=== PATIENT | male | born 1950 | race African-American/Black ===

== ENCOUNTER 2025-01-10 15:35 | Outpatient (OUT) | payer OTHER, SELFPAY ==
--- OUTSIDE RECORDS SUMMARY | 2024-12-29 15:40 | XMS_ITS | Encounter Summary ---
Author Organization [facility] Address [address] [place] [id number] Phone Care Team Providers Care Electronics Technology Instructor Name Role Phone Josse Robertson MD Primary Care Provider [phone] Reason for Referral * Consultation (Routine) - AuthorizedSpecialtyDiagnoses / ProceduresReferred By ContactReferred To ContactCardiology Diagnoses Essential hypertension, benign Procedures Follow Up In Cardiology Loi Summers MD [address] [place] [address], [address] [address] Phone: tel: fax: Loi Summers MD [address] [place] [address] Phone: tel: fax: Referral IDStatusReasonStart DateExpiration DateVisits RequestedVisits [id number]/20/202511/20/202611 Reason for Visit * Consultation (Routine) - AuthorizedSpecialtyDiagnoses / ProceduresReferred By ContactReferred To ContactCardiology Diagnoses Palpitation Procedures Follow Up In Cardiology Loi Summers MD [address] [place] [address], [address] [address] Phone: tel: fax: Loi Summers MD [address] [place] [address], [address] [address] Phone: tel: fax: Referral IDStatRejenniferStjessica DateExpiration DateVisits RequestedVisits [id number]/13/20252/13/202611 Encounter Details DateTypeDepartmentCare Team (Latest Contact Info)Gagvsuufmik57/20/2025 3:40 PM ESTOffice Visit [facility] [address] [place] [id number] Loi Summers MD [address] [facility] 2, [address] [place] [address] Ventricular ectopic beat (Primary Dx); Palpitation; Mixed hyperlipidemia; Essential hypertension, benign; Chest pain, unspecified type; Abnormal EKG; Obesity (BMI 30-39.9); Former smoker Discharge Disposition: Home Social History Tobacco UseTypesPacks/DayYears UsedDateSmoking Tobacco: OmmmwjBrirqhxgbr201 Smokeless Tobacco: Never Tobacco Cessation:Counseling Given: Not Answered Alcohol UseStandard Drinks/WeekCommentsNever0 (1 standard drink = 0.6 oz pure alcohol)PHQ-2AnswerDate RecordedPatient Health Questionnaire-2 Umfzs353 Sex and Gender InformationValueDate RecordedSex Assigned at BirthNot on file Legal XsoLuni60/25/2022 2:18 PM ESTGender IdentityNot on fileSexual Orientation Not on filedocumented as of this encounter Last Filed Vital Signs Vital SignReadingTime TakenCommentsBlood Vltnrefr349/8612/29/2024 3:59 PM EST Zyrjn570012/29/2024 3:44 PM ESTTemperature--Respiratory Rate--Oxygen Saturation-- Inhaled Oxygen Concentration--Klguie499 kg (227 lb 6.4 oz)12/29/2024 3:44 PM EST Zpsgjs150.9 cm (6')12/29/2024 3:44 PM ESTBody Mass Index30.8412/29/2024 3:44 PM ESTdocumented in this encounter Functional Status * BPAnswerDate of GyppgtvfqnKxzqtc159/ 3:59 PM Teresa De Los Santos LPN * PulseAnswerDate of FhrqvhxuodUxcapz9149/20/2025 3:44 PM Marie Martin LPN documented as of this encounter Patient Instructions * Patient Instructions* Teresa Perez LPN - 12/29/2024 3:40 PM EST Please bring all medicines, vitamins, and herbal supplements with you when you come to the office. Prescriptions will not be filled unless you are compliant with your follow up appointments or have a follow up appointment scheduled as per instruction of your physician. Refills should be requested at the time of your visit. BMI was above normal measurement. Current weight: 103 kg (227 lb 6.4 oz) Weight change since last visit (-) denotes wt loss -7.6 lbs Weight loss needed to achieve BMI 25: 43.5 Lbs Weight loss needed to achieve BMI 30: 6.7 Lbs Provided instructions on dietary changes Provided instructions on exercise. Stop metoprolol Start bystolic 10 mg daily * Attachments The following attachments cannot be sent through Care Everywhere. * Heart Healthy Diet (Greek) documented in this encounter Progress Notes * Loi Summers MD - 12/29/2024 3:40 PM EST No chief complaint on file. Alf Campos is a 74 y.o. male HPI Patient here for follow-up continue management for previous evaluation for PVCs and atypical chest pain. Since last time I saw him he report that he is feeling well. He denies chest pain, palpitation, lightheadedness, dizziness or syncope. He reported chest pain resolved with Prilosec. His blood pressure seem to be controlled. Last time I saw him he was complaining of some intermittent leg cramps. He held his atorvastatin without improvement so he resumed it back. His only complaint this time is erectile medical dysfunction. He reported he tried Viagra but caused him a lot of headache and Cialis was not as effective. I told him this could be really related to to his BP medication. Assessment 1. Previous evaluation for PVCs. Completely asymptomatic 2. Previous evaluation for episodes of chest pain likely GI. Did not respond to Prilosec. Previous stress test was negative. He described functional class I 3. Hypertension controlled with metoprolol and losartan 4. Hyperlipidemia controlled 5. Obesity no weight changes 6. He reports leg cramps. Did not improve with holding statin holiday. He reports functional class.Then can walk 2 miles. 7. Erectile dysfunction likely due to BP medication report Viagra caused him severe headache and Cialis has borderline improvement Plan 1. Patient was counseled regarding nonpharmacologic approach to management of hypertension including the DASH diet 2. I advised him to stop his metoprolol and switch to diastolic 10 mg to see whether that would have less impact on his erectile dysfunction 3. I advised him to continue his rest of medication 4. I advised him to notify me if his medication has been changed 5 1 year follow-up 6. I reviewed his recent lab with him Review of Systems All other systems reviewed and are negative. Vitals: 12/29/24 1544 12/29/24 1559 BP: (!) 148/96 130/86 BP Location: Left arm Patient Position: Sitting Pulse: 80 Weight: 103 kg (227 lb 6.4 oz) Height: 1.829 m (6') Objective Physical Exam Constitutional: Appearance: Normal appearance. HENT: Nose: Nose normal. Neck: Vascular: No carotid bruit. Cardiovascular: Rate and Rhythm: Normal rate. Pulses: Normal pulses. Heart sounds: Normal heart sounds. Pulmonary: Effort: Pulmonary effort is normal. Abdominal: General: Bowel sounds are normal. Palpations: Abdomen is soft. Musculoskeletal: General: Normal range of motion. Cervical back: Normal range of motion. Right lower leg: No edema. Left lower leg: No edema. Skin: General: Skin is warm and dry. Neurological: General: No focal deficit present. Mental Status: He is alert. Psychiatric: Mood and Affect: Mood normal. Behavior: Behavior normal. Thought Content: Thought content normal. Judgment: Judgment normal. Allergies Patient has no known allergies. Current Medications Current Outpatient Medications Medication Instructions atorvastatin (Lipitor) 20 mg tablet 1 tablet, Nightly losartan-hydrochlorothiazide (Hyzaar) 100-25 mg tablet 1 tablet, Daily magnesium oxide (Mag-Ox) 400 mg (241.3 mg magnesium) tablet 1 tablet, 2 times daily omeprazole (PRILOSEC) 40 mg, Daily Assessment/Plan 1. Ventricular ectopic beat 2. Palpitation Follow Up In Cardiology 3. Mixed hyperlipidemia 4. Essential hypertension, benign 5. Chest pain, unspecified type 6. Abnormal EKG 7. Obesity (BMI 30-39.9) 8. Former smoker Scribe Attestation By signing my name below, Teresa Jurado LPN , Scribe attest that this documentation has been prepared under the direction and in the presence of MD Bari. Provider Attestation - Scribe documentation All medical record entries made by the Scribe were at my direction and personally dictated by me. Ihave reviewed the chart and agree that the record accurately reflects my personal performance of the history, physical exam, discussion and plan. documented in this encounter Plan of Treatment DateTypeDepartmentCare Team (Latest Contact Info)Cgvrmgnsppw66/30/2026 3:20 PM EDTOffice Visit [facility] [address] [address] Loi Summers MD 703 [facility] 2, [address] [address] documented as of this encounter Visit Diagnoses Diagnosis Ventricular ectopic beat- Primary Other premature beats Palpitation Palpitations Mixed hyperlipidemia Essential hypertension, benign Chest pain, unspecified type Abnormal EKG Nonspecific abnormal electrocardiogram (ECG) (EKG) Obesity (BMI 30-39.9) Former smoker Personal history of tobacco use, presenting hazards to health documented in this encounter Additional Health Concerns AssessmentNoted TimeA fall risk assessment has been completed for the patient 03/24/2024 3:33 PM ESTdocumented as of this encounter Care Teams Team MemberRelationshipSpecialtyStart DateEnd Date Josse Robertson MD [address] [place] [address] [facility] - General02/09/19documented as of this encounter
--- OUTSIDE RECORDS SUMMARY | 2025-01-02 15:40 | XMS_ITS | Encounter Summary ---
Author Organization [facility] Address [address] [place] [address] Care Team Providers Care Surgical Lead Name Role Phone Josse Robertson MD Primary Care Provider [phone] Laurence Morgan ENDODONTICS DENTIST Unavailable Encounter Details DateTypeDepartmentCare Team (Latest Contact Info)Hphtmygocdk29/24/2025 3:40 PM ESTOffice Visit [facility] [address] [place] [address] Laurence Morgan, ENDODONTICS DENTIST [address] [place] [address] Routine general medical examination at health care facility (Primary Dx); Medicare annual wellness visit, subsequent; BMI 30.0-30.9,adult Social History Tobacco UseTypesPacks/DayYears UsedDateSmoking Tobacco: NeverSmokeless Tobacco: Never Tobacco Cessation:Counseling Given: Not Answered Alcohol UseStandard Drinks/WeekCommentsNever0 (1 standard drink = 0.6 oz pure alcohol)AUDIT-CAnswerDate RecordedQ1: How often do you have a drink containing alcohol?Never07/29/2022Q2: How many drinks containing alcohol do you have on a typical day when you are drinking?Patient does not drink07/29/2022Q3: How often do you have six or more drinks on one occasion?Never07/29/2022HQ-2AnswerDate RecordedPatient Health Questionnaire-2 Oruwg76403/04/2024Sex and Gender InformationValueDate RecordedSex Assigned at BirthNot on fileLegal SexMale 04/23/2022 7:12 PM EDTGender IdentityNot on fileSexual OrientationNot on file documented as of this encounter Last Filed Vital Signs Vital SignReadingTime TakenCommentsBlood Apibjcpc098/8801/02/2025 3:48 PM EST Euscy359501/02/2025 3:48 PM FVDQoqogcrkjyx86.2 ??C (97.2 ??F)01/02/2025 3:48 PM ESTRespiratory Xcys236103/04/2024 3:48 PM ESTOxygen Apknthisue80%01/02/2025 3:48 PM ESTInhaled Oxygen Concentration--Odflew460 kg (225 lb)01/02/2025 3:48 PM EST Cxurpb561.9 cm (6')01/02/2025 3:48 PM ESTBody Mass Index30.5201/02/2025 3:48 PM ESTdocumented in this encounter Functional Status * Over the past 2 weeks, how often have you been bothered by any of the following problems?QuestionAnswerDate of AssessmentAuthorLittle interest or pleasure in doing thingsNot at all01/02/2025 3:00 PM Mariza Minaya MA Feeling down, depressed, or hopelessNot at all01/02/2025 3:00 PM Mariza Minaya MAPatient Health Questionnaire-2 Aheoi61003/04/2024 3:00 PM Mariza Minaya MA * QuestionAnswerDate of AssessmentAuthorTrouble falling or staying asleep, or sleeping too muchNot at all01/02/2025 3:00 PM Mariza Minaya MAFeeling tired or having little energyNot at all01/02/2025 3:00 PM Mariza Minaya MAPoor appetite or overeatingNot at all01/02/2025 3:00 PM Mariza Minaya MAFeeling bad about yourself - or that you are a failure or have let yourself or your family downNot at all01/02/2025 3:00 PM ESTHaer, Mariza, MATrouble concentrating on things, such as reading the newspaper or watching television Not at all01/02/2025 3:00 PM Mariza Minaya, MAMoving or speaking so slowly that other people could have noticed? Or the opposite - being so fidgety or restless that you have been moving around a lot more than usual.Not at all 01/02/2025 3:00 PM Mariza Minaya, MAThoughts that you would be better off or hurting yourself in some wayNot at all01/02/2025 3:00 PM Mariza Minaya, [facility] Health Questionnaire-9 Droqj76203/04/2024 3:00 PM Mariza Minaya MA documented as of this encounter Progress Notes * Laurence Morgan, ENDODONTICS DENTIST - 01/02/2025 3:40 PM EST Images from the original note were not included. Family Medicine Note Subjective : Chief Complaint: Lilibeth Campos is an 74 y.o. male here for an annual wellness visit. He is upto date on lab work and preventative wellness screenings. He denies the need for medication refillsat this time. I have reviewed and reconciled the history and medication list with the patient today. Current Outpatient Medications Medication Sig Dispense Refill atorvastatin (Lipitor) 10 MG tablet Take 10 mg by mouth Daily celecoxib (CeleBREX) 200 MG capsule Take 1 capsule (200 mg) by mouth Daily 30 capsule 5 coenzyme Q-10 100 MG capsule Take 1 capsule (100 mg) by mouth Daily 90 capsule 3 cyclobenzaprine (Flexeril) 5 MG tablet Take 5 mg by mouth as needed in the morning and 5 mg as needed at noon and 5 mg as needed in the evening for muscle spasms. Flomax 0.4 MG 24 hr capsule Take 0.8 mg by mouth Gemtesa 75 MG tablet Take 75 mg by mouth magnesium oxide (Mag-Ox) 400 (240 Mg) MG tablet Take 2 tablets (800 mg) by mouth Daily 180 tablet 3 metoprolol succinate XL (Toprol-XL) 50 MG 24 hr tablet Take 1 tablet (50 mg) by mouth Daily Do not crush or chew. 90 tablet 3 nebivolol (Bystolic) 10 MG tablet Take 10 mg by mouth Daily No current facility-administered medications for this visit. List of current healthcare providers: Patient Care Team: Josse Robertson MD as PCP - General (Family Medicine) Laurence Morgan NP as Nurse Practitioner (Family Medicine) Medicare Annual Visit Over the past 2 weeks, how often have you been bothered by any of the following problems? Little interest or pleasure in doing things: Not at all Feeling down, depressed, or hopeless: Not at all Patient Health Questionnaire-2 Score: 0 Over the past 2 weeks, how often have you been bothered by any of the following problems? Trouble falling or staying asleep, or sleeping too much: Not at all Feeling tired or having little energy: Not at all Poor appetite or overeating: Not at all Feeling bad about yourself - or that you are a failure or have let yourself or your family down: Not at all Trouble concentrating on things, such as reading the newspaper or watching television: Not at all Moving or speaking so slowly that other people could have noticed? Or the opposite - being so fidgety or restless that you have been moving around a lot more than usual.: Not at all Thoughts that you would be better off or hurting yourself in some way: Not at all Patient Health Questionnaire-9 Score: 0 Pereira Fall Risk History of Falling, Immediate or Within 3 Months: No Secondary Diagnosis: No Ambulatory Aid: Walks without aid/bedrest/nurse assist Intravenous Therapy/Heparin Lock: No Gait/Transferring: Normal/bedrest/immobile Mental Status: Oriented to own ability Pereira Fall Risk Score: 0 Health Risk Assessment Form Do you need help eating, bathing, using the toilet, dressing, or getting around your home?: No Can you prepare your own meals?: Yes Can you do your own housework without help?: Yes Can you shop for groceries or clothes without help?: Yes Do you exercise for about 20 minutes 3 or more days a week?: No How confident are you that you can control and manage most of your health problems?: Very confident Can you mange your money, credit cards and accounts, pay bills and taxes?: Yes Cognitive Screening Self Assessment: No overt cognitive deficiency is apparent by direct observation, No concerns rasied by family members, friends, or caretakers, No self awareness of cognitive deficiency Three Word Registration: Magdi Mcnulty,Finger) Clock Drawing: Normal Clock - 2 Three Word Recall: All 3 words correct - 3 Total Score (0-5 Points): 5 Pain Assessment Pain Score: 2 Advance Care Planning Do you have a living will?: No Do you have a medical power of estate planning attorney?: No Objective : BP 138/88 Pulse 57 Temp 97.2 ??F (Temporal) Resp 16 Ht 6' Wt 225 lb SpO2 99% BMI 30.52 kg/m?? No results found. Physical Exam Vitals and nursing note reviewed. Constitutional: General: He is not in acute distress. Appearance: Normal appearance. He is not ill-appearing. HENT: Head: Normocephalic and atraumatic. Right Ear: External ear normal. Left Ear: External ear normal. Nose: Nose normal. Mouth/Throat: Mouth: Mucous membranes are moist. Eyes: Extraocular Movements: Extraocular movements intact. Pupils: Pupils are equal, round, and reactive to light. Cardiovascular: Rate and Rhythm: Normal rate. Pulses: Normal pulses. Heart sounds: No murmur heard. Pulmonary: Effort: Pulmonary effort is normal. Breath sounds: No wheezing, rhonchi or rales. Abdominal: General: Bowel sounds are normal. There is no distension. Tenderness: There is no abdominal tenderness. Musculoskeletal: General: Normal range of motion. Cervical back: Normal range of motion. Skin: General: Skin is warm and dry. Neurological: General: No focal deficit present. Mental Status: He is alert and oriented to person, place, and time. Psychiatric: Mood and Affect: Mood normal. Behavior: Behavior normal. Judgment: Judgment normal. Assessment/Plan : The following health maintenance schedule was reviewed with the patient and provided in printed form in the after visit summary: Health Maintenance Topic Date Due Influenza Vaccine (1) 08/08/2025 (Originally 10/10/2024) Pneumococcal Vaccine: 65+ Years (1 of 2 - PCV) 01/02/2026 (Originally 10/20/1969) Medicare Annual Wellness (AWV) 01/03/2026 Colorectal Cancer Screening 09/15/2032 COVID-19 Vaccine Discontinued Diagnoses and all orders for this visit: Routine general medical examination at [facility] Medicare annual wellness visit, subsequent Patient here for annual Medicare Wellness visit. Demographics were updated. Self-assessment was completed. Past medical, family and social history were updated. The medication list, including supplements being taken, was updated. A list of other current medical providers was established/updated. Time was spent discussing health maintenance issues, ordering proper testing, and schedule was provided regarding recommended screening. We discussed safety issues and fall risk. Depression screening was completed and addressed. Cognitive function was assessed by direct observation and assessment of ability to perform ADL's and IADL's was done. We also discussed Advanced Directives and code status. The current BMI was provided along with an education packet regarding healthy living and maintenanceof a healthy weight. The BMI will cont to be monitored at routine office visits as well. Major riskfactors for chronic disease including family history were discussed . Other orders - Follow Up In Family Medicine; Future Advance Care Planning He does not have a living will or POA in place. Electronically signed by Laurence Morgan NP on January 09, 2025 documented in this encounter Plan of Treatment DateTypeDepartmentCare Team (Latest Contact Info)Vlboeajagxw50/05/2025 2:00 PM ESTAncillary Procedure [facility] [address] [place] [address] 06/29/2025 3:40 PM EDTOffice Visit [facility] [place] [facility] [address] [place] [address] Laurence Morgan NP [address] [place] [address] documented as of this encounter Visit Diagnoses Diagnosis Routine general medical examination at health care facility- Primary Routine general medical examination at a health care facility Medicare annual wellness visit, subsequent BMI 30.0-30.9,adult documented in this encounter Additional Health Concerns AssessmentNoted TimePHQ-9 Depression Total Score: 3:00 PM EST documented as of this encounter Care Teams Team MemberRelationshipSpecialtyStart DateEnd Date Josse Robertson MD [address] [place] [address] PCP - GeneralFamily Medicine07/16/22 Laurence Morgan NP [address] [place] [address] Nurse PractitionerFacape cod and the islands [facility] Medicine05/07/24documented as of this encounter
--- NOTE | 2025-01-10 15:37 | ECG_ITS ---
[facility] Test Date: 2025-01-10 Pat Name: ALYSIA SEARS Department: Room: - Gender: Male Operation Supervisor: : 1950 Requested By: [id number] Order Number: [id number] Reading MD: MARCELINO MG M.D. Measurements Intervals Johnson Rate: 52 P: 72 TX: 168 QRS: 9 QRSD: 100 T: 53 QT: 404 QTc: 377 Interpretive Statements SINUS BRADYCARDIA WITH SINUS ARRHYTHMIA NONSPECIFIC T-WAVE ABNORMALITY Abnormal ECG No previous ECG available for comparison Electronically Signed On 01-11-2025 19:47:04 EST by MARCELINO MG M.D.
--- NOTE | 2025-01-10 15:38 | CA_ITS ---
Patient Name: ALYSIA SEARS MR#: [id number] : 1950 Exam Date: 01/10/2025 Ordering Doctor: DR. KASI VELA ECHOCARDIOGRAM REPORT PROCEDURE: CA ECHO DOPPLER COMPLETE INDICATIONS: Ischemic heart disease, hypertension COMPARISON: None. DESCRIPTION: COMPLETE ECHOCARDIOGRAM Real-time transthoracic echocardiography with 2D, M-mode, spectral and color flow Doppler performed. QUALITY: Technical quality was good. LEFT VENTRICLE: Normal chamber size. Normal left ventricular wall thickness. Systolic function is normal. Estimated left ventricular ejection fraction is 55-60%. LV EF: Normal left ventricular ejection fraction, (>55%). DIASTOLIC: Diastolic function is indeterminate. ATRIAL SEPTUM: LEFT ATRIUM: Mild dilatation. RIGHT ATRIUM: Mild dilatation. RIGHT VENTRICLE: Normal chamber size. Normal right ventricular systolic function. TRICUSPID VALVE: Normal mobility and thickness. No stenosis with mild regurgitation. Doppler studies reveal moderately (45-60) elevated right sided pressures. RVSP 46 mmHg MITRAL VALVE: Normal mobility and thickness. No evidence of mitral valve stenosis. There is no mitral annular calcification. Mild mitral regurgitation. AORTIC VALVE: Normal trileaflet appearance. No visible sclerosis. Normal leaflet mobility. No evidence of aortic valve stenosis. No aortic regurgitation. AORTIC ROOT: Normal diameter and appearance, measuring 3.3 cm. Ascending aorta is normal in size, measuring 2.9 cm. PULMONIC VALVE: Normal thickness and mobility. No stenosis. Mild regurgitation. PERICARDIUM: No evidence of pericardial effusion. IVC: Not well visualized. PLEURA: CONCLUSION: 1. Normal left ventricular size and systolic function. Estimated LVEF is 55 to 60%. 2. Normal right ventricular size and systolic function. 3. Mild biatrial dilatation. 4. Mild mitral, tricuspid and pulmonic regurgitation. 5. Moderately elevated right-sided pressures. RVSP is 46 mmHg. Adult Echocardiography Procedure Report Left Ventricle LVEDD (3.7 - 5.6 cm): 5.16 cm LVESD (2.2 - 4.0 cm): 3.83 cm LVIVS thickness (0.6 - 1.2 cm): 1.13 cm LVPW thickness (0.5 - 1.0 cm): 1.03 cm e': 0.12 m/s E - e': 7.46 LVOT Max Gradient: 2.31 mm[Hg] LVOT Area (cm2): 0.76 m/s Peak Velocity (LVOT): 0.76 m/s Mean Velocity (LVOT): 0.53 m/s LVOT Diameter 2.28 cm Left Ventricular Ejection Fraction: 55-60 % Left Atrium LA Volume Index (2D A2C): 44.83 ml/m2 Left Atrium Systolic Dimension: 4.49 cm Mitral Valve MV E to A Ratio: 1.02 Mitral Valve A-Wave Peak Velocity: 0.87 m/s Mitral Valve E-Wave Peak Velocity: 0.88 m/s Right Ventricle Aorta AO Root Diam: 3.30 cm Ascending Ao Diam: 2.86 cm Aortic Valve AoV Area (Peak Emre): 2.10 cm2, 2.10 cm2 AoV Area (VTI): 2.38 cm2, 2.38 cm2 Peak Velocity(Antegrade Flow): 1.47 m/s Peak Gradient(Antegrade Flow): 8.69 mm[Hg] Mean Velocity(Antegrade Flow): 0.91 m/s Mean Gradient(Antegrade Flow): 4.00 mm[Hg] Velocity Time Integral: 36.86 cm Tricuspid Valve Peak Velocity (Regurgitant Flow): 3.30 m/s Pulmonic Valve Mean Gradient: 2.94 mm[Hg] Mean Velocity: 0.81 m/s Peak Velocity: 1.15 m/s Peak Gradient: 5.33 mm[Hg] Right Atrium Right Atrium Systolic Pressure: 59.38 ml, 59.38 ml Dictated by: King Slater M.D. on 01/10/2025 at 17:15 Approved by: King Slater M.D. on 01/10/2025 at 17:21
--- OUTSIDE RECORDS SUMMARY | 2025-01-10 15:39 | XMS_ITS | Clinical Summary ---
Author Organization [facility] Address [address] [place] [address] Care Team Providers Care Agriculture Technician Name Role Phone Hieu Rogers MD Unavailable Allergies No known active allergies Medications MedicationSigDispense QuantityRefillsLast FilledStart DateEnd DateStatus ferrous sulfate 325 mg (65 mg iron) tablet Take 1 tablet by mouth once daily.12/16/2019Active atorvastatin (LIPITOR) 20 mg tablet 01/31/2020Active amLODIPine-benazepril (LOTREL) 5-20 mg per capsule 01/31/2020Active Active Problems ProblemNoted DateDiagnosed DateED (erectile dysfunction) of organic origin 02/15/2020 Social History Tobacco UseTypesPacks/DayYears UsedDateSmoking Tobacco: FormerSmokeless Tobacco: NeverArea Deprivation IndexAnswerDate RecordedNational Score (1-100), lower number is lower riskNot on file02/15/2020tate Score (1-10), lower number is lower riskNot on file02/15/2020ata from: https://www.neighborhoodatlas.medicine.[facility].edu/. Last address used for calculationNot on file02/15/2020ex and Gender InformationValueDate RecordedSex Assigned at BirthNot on fileLegal VefDsdi73/22/2020 3:53 PM ESTGender Identity Not on fileSexual OrientationNot on file Last Filed Vital Signs Vital SignReadingTime TakenCommentsBlood Cgjrtptc319/76002/15/2020 2:26 PM EST Lvexr770002/15/2020 2:26 PM QTEApvynnyxzee53.1 ??C (97 ??F)02/15/2020 2:26 PM EST Respiratory Rate--Oxygen Saturation--Inhaled Oxygen Concentration--Dpgovf34.4 kg (217 lb)02/15/2020 2:26 PM QYDSrscvd991.9 cm (6')02/15/2020 2:26 PM ESTBody Mass Index29.4301 2:26 PM EST Plan of Treatment Health MaintenanceDue DateLast DoneCommentsAbdominal Aortic Aneurysm Screening 3Anxiety Fbvkxcacl47/10/1971Depression Hfexrbmph24/10/1971Hepatitis C Cazbgdihe14/10/1971DTaP,Tdap,Td Vaccine (1 - Tdap)10/20/1971Lipid Screening 10/20/1987CT Ksybesxqyluh65/10/1998Cologuard (FIT-DNA)1997Colonoscopy 1997Colorectal Cancer Vexgkejfx41/10/1998Diabetes Hcifajhzx28/10/1998Fecal Occult Blood10/19/19979889Jgcfjxsnomorv88/10/1998Pneumococcal Vaccine: 50+ (1 of 1 - PCV)2002Shingrix Vaccine (1 of 2)2002Advance Directive Discussion 02/10/2024ovid-19 Vaccine (1 - 2024- season)2024Influenza Vaccine (#1) 2024RSV Vaccine (1 - 1-dose 75+ series)10/20/2027 Insurance Care Teams Team MemberRelationshipSpecialtyStart DateEnd Hieu Rogers MD [address] [place] [address] AocyxmpjvLnbkjnq03/22/20
--- OUTSIDE RECORDS SUMMARY | 2025-01-10 15:39 | XMS_ITS | Clinical Summary ---
Author Organization [facility] Address [address] [place] [address] Phone Care Team Providers Care Cs Associate Name Role Phone Josse Robertson MD Primary Care Provider Allergies No known active allergies Medications MedicationSigDispense QuantityRefillsLast FilledStart DateEnd DateStatus atorvastatin (Lipitor) 20 mg tablet Take 1 tablet (20 mg) by mouth once daily at bedtime.Active magnesium oxide (Mag-Ox) 400 mg (241.3 mg magnesium) tablet Take 1 tablet (400 mg) by mouth 2 times a day.07/23/2021ctive omeprazole (PriLOSEC) [address] capsule Take 2 capsules (40 mg) by mouth once daily. Do not crush or chew. Take for 6 weeksActive losartan-hydrochlorothiazide (Hyzaar) 100-25 mg tablet Take 1 tablet by mouth once daily.Active nebivolol (Bystolic) 10 mg tablet Indications:Essential hypertension, benignTake 1 tablet (10 mg) by mouth once daily. 90 tablet ctive metoprolol succinate XL (Toprol-XL) 50 mg 24 hr tablet Indications:Essential hypertension, benignTake 1 tablet (50 mg) by mouth once daily. Do not crush or chew. 90 tablet Discontinued(Therapy completed) Active Problems ProblemNoted DateDiagnosed DateFormer eqacol1609/22/2023Obesity (BMI 30-39.9) 09/22/2023bnormal EKG09hest pain10/16/2022Ventricular ectopic beat 10/16/20225916Kxqfbiziyrm32/07/2023Mixed xszivftqdeclin24/07/2023Essential hypertension, cwivok9410/16/2022 Resolved Problems ProblemNoted DateDiagnosed DateResolved DateOverweight with body mass index (BMI) of 29 to 29.9 in adult/ Encounters DateTypeDepartmentCare XbrnCzyojqsyovz01/20/2025 3:40 PM ESTOffice Visit [address] [address] Loi Summers MD Ventricular ectopic beat (Primary Dx); Palpitation; Mixed hyperlipidemia; Essential hypertension, benign; Chest pain, unspecified type; Abnormal EKG; Obesity (BMI 30-39.9); Former smoker Discharge Disposition: Home12/29/2024Travelfrom Last 3 Months Family History Medical HistoryRelationNameCommentsCancerFatherEmphysemaMotherRelationNameStatus CommentsFatherMother Social History Tobacco UseTypesPacks/DayYears UsedDateSmoking Tobacco: KovbefAjzqmnxdip291 Smokeless Tobacco: Never Tobacco Cessation:Counseling Given: Not Answered Alcohol UseStandard Drinks/WeekCommentsNever0 (1 standard drink = 0.6 oz pure alcohol)PHQ-2AnswerDate RecordedPatient Health Questionnaire-2 Skfar755 Sex and Gender InformationValueDate RecordedSex Assigned at BirthNot on file Legal OywIzfq35/25/2022 2:18 PM ESTGender IdentityNot on fileSexual Orientation Not on file Last Filed Vital Signs Vital SignReadingTime TakenCommentsBlood Uwfacyfx866/8612/29/2024 3:59 PM EST Wtzwy794312/29/2024 3:44 PM ESTTemperature--Respiratory Rate--Oxygen Saturation-- Inhaled Oxygen Concentration--Zfxpbv408 kg (227 lb 6.4 oz)12/29/2024 3:44 PM EST Krdvyc213.9 cm (6')12/29/2024 3:44 PM ESTBody Mass Index30.8412/29/2024 3:44 PM EST Plan of Treatment DateTypeDepartmentCare Team (Latest Contact Info)Otkvwljjhjy80/30/2026 3:20 PM EDTOffice Visit [address] [address] Loi Summers MD [address] [facility] 2, [address] [address] Health MaintenanceDue DateLast DoneCommentsCT Ojemsxgjjkfx14/10/1953FIT-DNA (Cologuard)1952FIT1952Lipid Panel1952Medicare Annual Wellness Visit (AWV)1952Pfxfattjpaprb07/10/1953MMR Vaccines (1 of 1 - Standard series)1953Hepatitis C Dzduaigoi96/10/1971DTaP/Tdap/Td Vaccines (1 - Tdap) 1974Pneumococcal Vaccine (1 of 1 - PCV)2002RSV High Risk: (Elderly (60+) or Population) (1 - Risk 50-74 years 1-dose series)2002 Zoster Vaccines (1 of 2)2002Abdominal Aortic Aneurysm (AAA) Screening 2017Influenza Vaccine (#1)5COVID-19 Vaccine (1 - season) 10/10/20249124Vcpzrtxsbxh66Colorectal Cancer Iqgspyahi59/12/2025 HIB VaccinesAged OutNo longer eligible based on patient's age to complete this topicHPV VaccinesAged OutNo longer eligible based on patient's age to complete this topicHepatitis A VaccinesAged OutNo longer eligible based on patient's age to complete this topicHepatitis B VaccinesAged OutNo longer eligible based on patient's age to complete this topicIPV VaccinesAged OutNo longer eligible based on patient's age to complete this topicMeningococcal VaccineAged OutNo longer eligible based on patient's age to complete this topicRotavirus VaccinesAged Out No longer eligible based on patient's age to complete this topic Insurance Care Teams Team MemberRelationshipSpecialtyStart DateEnd Date Josse Robertson MD [address] [place] [id number] PCP - General02/09/19
--- OUTSIDE RECORDS SUMMARY | 2025-01-10 15:39 | XMS_ITS | Encounter Summary ---
Author Organization [facility] Address [address] [place] [address] Care Team Providers Care Assistant Professor Of Nursing Name Role Phone Josse Robertson MD Primary Care Provider [phone] Laurence Morgan HYDRAULIC ASSEMBLER Unavailable Encounter Details DateTypeDepartmentCare Team (Latest Contact Info)Jgablfjuwhi11/24/2025amboo flowsheet [facility] [address] [place] [address] Laurence Morgan, HYDRAULIC ASSEMBLER [address] [place] [address] Social History Tobacco UseTypesPacks/DayYears UsedDateSmoking Tobacco: NeverSmokeless Tobacco: NeverAlcohol UseStandard Drinks/WeekCommentsNever0 (1 standard drink = 0.6 oz pure alcohol)AUDIT-CAnswerDate RecordedQ1: How often do you have a drink containing alcohol?Never07/29/2022Q2: How many drinks containing alcohol do you have on a typical day when you are drinking?Patient does not drink07/29/2022Q3: How often do you have six or more drinks on one occasion?Never07/29/2022HQ-2 AnswerDate RecordedPatient Health Questionnaire-2 Sqxsx20803/04/2024Sex and Gender InformationValueDate RecordedSex Assigned at BirthNot on fileLegal SexMale 04/23/2022 7:12 PM EDTGender IdentityNot on fileSexual OrientationNot on file documented as of this encounter Functional Status * Over the past 2 weeks, how often have you been bothered by any of the following problems?QuestionAnswerDate of AssessmentAuthorLittle interest or pleasure in doing thingsNot at all01/02/2025 3:00 PM Mariza Minaya MA Feeling down, depressed, or hopelessNot at all01/02/2025 3:00 PM Mariza Minaya MAPatient Health Questionnaire-2 Ndlym24403/04/2024 3:00 PM Mariza Minaya MA * QuestionAnswerDate of AssessmentAuthorTrouble falling or staying asleep, or sleeping too muchNot at all01/02/2025 3:00 PM Mariza Minaya MAFeeling tired or having little energyNot at all01/02/2025 3:00 PM Mariza iMnaya MAPoor appetite or overeatingNot at all01/02/2025 3:00 PM Mariza Minaya MAFeeling bad about yourself - or that you are a failure or have let yourself or your family downNot at all01/02/2025 3:00 PM Mariza Minaya MATrouble concentrating on things, such as reading [...] some wayNot at all01/02/2025 3:00 PM Mariza Minaya MAPatient Health Questionnaire-9 Otrjr37803/04/2024 3:00 PM Mariza Minaya MA documented as of this encounter Plan of Treatment DateTypeDepartmentCare Team (Latest Contact Info)Tdhavudgcgr44/05/2025 2:00 PM ESTAncillary Procedure [facility] [address] [address] 06/29/2025 3:40 PM EDTOffice Visit [facility] [address] [place] [address] Laurence Morgan NP [address] [place] [address] documented as of this encounter Visit Diagnoses Not on filedocumented in this encounter Additional Health Concerns AssessmentNoted TimePQ-9 Depression Total Score: 3:00 PM EST documented as of this encounter Care Teams Team MemberRelationshipSpecialtyStart DateEnd Date Josse Robertson MD [address] [place] [address] PCP - GeneralFamily Medicine07/16/22 Laurence Morgan NP [address] [place] [address] Nurse PractitionerFamily Medicine05/07/24documented as of this encounter
--- OUTSIDE RECORDS SUMMARY | 2025-01-10 15:39 | XMS_ITS | Clinical Summary ---
Author Organization [facility] Address [address] [place] [address] Care Team Providers Care Engraver Machine Name Role Phone Josse Robertson MD Primary Care Provider [phone] Laurence Morgan GRAPE PRUNER Unavailable [phone] Allergies No known active allergies Medications MedicationSigDispense QuantityRefillsLast FilledStart DateEnd DateStatus metoprolol succinate XL (Toprol-XL) 50 MG 24 hr tablet Indications:Essential hypertensionTake 1 tablet (50 mg) by mouth Daily Do not crush or chew. 90 tablet /5Active coenzyme Q-10 100 MG capsule Indications:Hyperlipidemia, unspecified hyperlipidemia typeTake 1 capsule (100 mg) by mouth Daily 90 capsule ctive magnesium oxide (Mag-Ox) 400 (240 Mg) MG tablet Indications:HypomagnesemiaTake 2 tablets (800 mg) by mouth Daily 180 tablet 6Active cyclobenzaprine (Flexeril) 5 MG tablet Take 5 mg by mouth as needed in the morning and 5 mg as needed at noon and 5 mg as needed in the evening for muscle spasms.Active atorvastatin (Lipitor) 10 MG tablet Take 10 mg by mouth DailyActive celecoxib (CeleBREX) 200 MG capsule Indications:Chronic pain of both kneesTake 1 capsule (200 mg) by mouth Daily 30 capsule //931513/5Active Flomax 0.4 MG 24 hr capsule Take 0.8 mg by mouth5Active Gemtesa 75 MG tablet Take 75 mg by mouth08/21/2025Active nebivolol (Bystolic) 10 MG tablet Take 10 mg by mouth DailyActive losartan-hydroCHLOROthiazide (Hyzaar) 100-25 MG tablet Indications:Essential hypertensionTake 1 tablet by mouth Daily 90 tablet Discontinued(Therapy completed) cholecalciferol (Vitamin D-3) 125 MCG (5000 UT) capsule Indications:Vitamin D deficiencyTake 1 capsule (125 mcg) by mouth Daily 90 capsule Discontinued(Therapy completed) methylPREDNISolone (Medrol Dospak) 4 MG tablets Indications:Muscle strain of right wrist, initial encounterFollow schedule on package instructions 21 tablet Discontinued(Therapy completed) Active Problems ProblemNoted DateDiagnosed DateLumbar fmohaeptyrbwr44/21/2024ilateral thigh pain07/31/2023ilateral knee pain07/31/2023denomatous polyp of descending colon 09/24/2022Helicobacter pylori mpsrjauyh59/10/2023astroesophageal reflux disease 08/20/2022 Assessment & Plan (08/20/2022 3:43 PM EDT): The patient has been on Prilosec for several months and still c/o reflux issues. I explained that Ican do an EGD at the same time I do the colonoscopy to check for ulcers and H. Pylori. I explained the EGD procedure to him with the risks and benefits. Left upper quadrant abdominal pain08/20/2022 Assessment & Plan (08/20/2022 3:45 PM EDT): I reviewed his negative GB US which was negative for GB disease, ,he has a history of colon polyps.He presents today with LUQ abdomina pain. I suggest we do a colonoscopy. I explained the colonoscopy procedure in detail to the patient and discussed the risks and benefits including but not exclusive of bleeding, and perforation. I asked the patient not to drive, operate any machinery or make any important decisions on the day of the procedure. The patient is in agreement and arrangements for colonoscopy have been made. BMI 29.0-29.9,adult08/19/2022PH with urinary mlyhertlpgy77/11/2023Former smoker 08/19/2022Frequent fnghqinlk35/11/0699Gtpqpfpp98/11/2023ost-void dribbling 08/19/2022ilateral carpal tunnel iashoigx10/07/2023Erectile disorder due to medical condition in male07/16/2022Essential wqpmiwgqaeue35/07/2023 Dnqjjtiopehbfd87/07/3322Hopuikqwecxpfr75/07/2023Mixed vwawlgntaqoffq53/07/2023 Renal calculus, right07/16/2022Vitamin D rqqfvzehte35/07/2023 Resolved Problems ProblemNoted DateDiagnosed DateResolved DateClass 1 fzehigx41/ Encounters DateTypeDepartmentCare WyxnCzmgdcnjpiz05/24/2025 3:40 PM ESTOffice Visit [facility] [address] [place] [address] Laurence Morgan NP Routine general medical examination at [facility] (Primary Dx); Medicare annual wellness visit, subsequent; BMI 30.0-30.9,adult01/02/2025bstract [facility] [address] [place] [address] Laurence Morgan NP 01/02/2025amboo flowsheet [facility] [address] [place] [address] Laurence Morgan NP 01/02/20250020Dnjeaz36/08/2025Telephone [facility] [address] [place] [address] Josse Robertson MD Appointment Confirmation; Medicare Annual Wellness Visit Hxswgsq8112/12/2024Orders Only [facility] [address] [place] [address] Laurence Morgan NP 12/12/2024bstract [facility] [address] [place] [address] Josse Robertson MD 11/24/2024Telephone [facility] [address] [place] [address] Angel Hannon PA Follow up (Called to let Lilibeth know I checked with urgent care & Maryam let me know she spokewith his medical case manager and his [facility] claim for the right injury was closed. He said we can use use [facility] Medicare for his visit.)11/21/2024 3:15 PM EDTOffice Visit [facility] [address] [place] [address] Angel Hannon PA Mass of left wrist (Primary Dx); Primary distal radioulnar joint osteoarthritis, left11/21/20244219Eujotb57/02/2025 4:00 PM EDTAncillary Procedure [facility] [address] [place] [address] 11/10/2024 3:40 PM EDTOffice Visit [facility] [address] [place] [address] Radha Garcia, GUERRERO Right wrist pain (Primary Dx); Muscle strain of right wrist, initial xrtekfhmr35/02/0187Hkkcsy77/02/2025 Telephone [facility] [address] [place] [address] Maryam Weber MA Worker's Compensation (Follow up with [facility] referral)from Last 3 Months Immunizations ImmunizationAdministration DatesNext DuePfizer Purple Cap SARS-CoV-2 Vaccination 08/15/2020,1Pneumococcal Conjugate PCV (Deferred: Patient decision) Family History Medical HistoryRelationNameCommentsPneumoniaBrotherkevindied 17Heart disease Fatherdonalddied 76COPDMotherdeloresdied 67Breast cancerNeg HxColon cancerNeg Hx Ovarian cancerNeg HxUterine cancerNeg HxRelationNameStatusCommentsBrotherkevin Sjnfcwyt5DxlfwgybhfsuWwfqurlvUsijrbbterojzVweblaasFhdin0 brothers, 4 sisters, 5 sons, 1 daughterSister4 Social History Tobacco UseTypesPacks/DayYears UsedDateSmoking Tobacco: NeverSmokeless [...] drinks on one occasion?Never07/29/2022HQ-2AnswerDate RecordedPatient Health Questionnaire-2 Yhupg22703/04/2024Sex and Gender InformationValueDate RecordedSex Assigned at BirthNot on fileLegal SexMale 04/23/2022 7:12 PM EDTGender IdentityNot on fileSexual OrientationNot on file Last Filed Vital Signs Vital SignReadingTime TakenCommentsBlood Acoafxws795/8811 3:48 PM EST Ywoli427001/02/2025 3:48 PM YVTXzwmdspizaq76.2 ??C (97.2 ??F)01/02/2025 3:48 PM ESTRespiratory Qvlx803503/04/2024 3:48 PM ESTOxygen Dhqdmxrrkh00%01/02/2025 3:48 PM ESTInhaled Oxygen Concentration--Luudgo529 kg (225 lb)01/02/2025 3:48 PM EST Knorog226.9 cm (6')01/02/2025 3:48 PM ESTBody Mass Index30.5201/02/2025 3:48 PM EST Plan of Treatment DateTypeDepartmentCare Team (Latest Contact Info)Pgbhhjjjsom29/05/2025 2:00 PM ESTAncillary Procedure [facility] [address] [place] [address] 06/29/2025 3:40 PM EDTOffice Visit [facility] [address] [place] [address] Laurence Morgan, GRAPE PRUNER [address] [place] [address] Health MaintenanceDue DateLast DoneCommentsCT Djrsqksxaqcf08/10/1953FIT-DNA 1952FIT1952FOBT1952 4359Wmszbmgikrkoo65/10/1953Influenza Vaccine (#1)2025Postponed from 10/10/2024 (Patient Refused)Pneumococcal Vaccine: 65+ Years (1 of 2 - PCV)01/02/2026Postponed from 10/20/1971 (Patient Refused) Medicare Annual Wellness (AWV), 01/02/2025, 12/16/2023, Additional history lujxfyLmebfhpheqt51/07/203308/08/2022, 11/20/2014Colorectal Cancer Mxmljdkrj14/07/2033OVID-19 LdqwkztXexzftctaluy86/08/2021, 08/15/2020, 07/19/2020, Additional history exists Procedures Procedure NamePriorityDate/TimeAssociated DiagnosisCommentsXR WRIST 3+ VIEWS TKOHILUBW47/02/2025 4:12 PM EDT Right wrist pain COLONOSCOPY IBLWOVHHRZSepykzm91/07/2023 3:56 PM EDTfrom Last 3 Months or Most Recently Relevant to Health Maintenance Results * XR wrist 3+ views right (11/10/2024 4:12 PM EDT)Anatomical RegionLaterality ModalityUpper Extremities, WristRightRadiographic ImagingSpecimen (Source) Anatomical Location / LateralityCollection Method / VolumeCollection Time Received Time11/10/2024 5:15 PM EDT Impressions 11/10/2024 5:19 PM EDT No acute osseous abnormality. Degenerative changes of the wrist. ELECTRONICALLY SIGNED BY: DO Carmen Flannery 11/10/2024 5:19 PM EDT EXAM: XR WRIST 3+ VIEWS RIGHT HISTORY: Wrist pain COMPARISON: None available TECHNIQUE: 4 views of the wrist obtained. FINDINGS: No acute fracture or dislocation. Advanced degenerative changes at the articulation of the lunate with distal ulna, likely secondary to positive ulnar variance. Mild degenerative changes elsewhere throughout the wrist. Carpal and radiocarpal alignment is satisfactory. Soft tissues are within normallimits. Procedure Note Delvis Linda DO - 11/10/2024 EXAM: XR WRIST 3+ VIEWS RIGHT HISTORY: Wrist pain COMPARISON: None available TECHNIQUE: 4 views of the wrist obtained. FINDINGS: No acute fracture or dislocation. Advanced degenerative changes at the articulation of the lunate with distal ulna, likely secondary to positiveulnar variance. Mild degenerative changes elsewhere throughout the wrist.Carpal and radiocarpal alignment is satisfactory. Soft tissues are withinnormal limits. IMPRESSION: No acute osseous abnormality. Degenerative changes of the wrist. ELECTRONICALLY SIGNED BY: Delvis Linda DO Authorizing ProviderResult TypeResult StatusRapeggy Garcia NPIMG XR PROCEDURESFinal Result * COLONOSCOPY DIAGNOSTIC (09/15/2022 3:56 PM EDT)Anatomical RegionLaterality ModalityRadiographic Imaging Narrative Authorizing ProviderResult TypeResult StatusLaurence Morgan NPIMG XR PROCEDURES Final Result from Last 3 Months or Most Recently Relevant to Health Maintenance Insurance Care Teams Team MemberRelationshipSpecialtyStart DateEnd Date Josse Robertson MD [address] [place] [address] PCP - GeneralFamily Medicine07/16/22 Laurence Morgan NP [address] [place] [address] Nurse PractitionerFamily Medicine05/07/24
--- OUTSIDE RECORDS SUMMARY | 2025-01-10 15:39 | XMS_ITS | Encounter Summary ---
Author Organization [facility] Address [address] [place] [address] Care Team Providers Care Lawnmower Mechanic Name Role Phone Josse Robertson MD Primary Care Provider [phone] Laurence Morgan STOCK HANDLER Unavailable [phone] Encounter Details DateTypeDepartmentCare Team (Latest Contact Info)Nuatnmufhtj21/24/2025Travel Social History Tobacco UseTypesPacks/DayYears UsedDateSmoking Tobacco: NeverSmokeless [...] on one occasion?Never07/29/2022HQ-2 AnswerDate RecordedPatient Health Questionnaire-2 Jmgtm44503/04/2024Sex and Gender InformationValueDate RecordedSex Assigned at BirthNot [...] 3:00 PM Mariza Minaya MAPatient Health Questionnaire-2 Keghe79703/04/2024 3:00 PM Mariza Minaya MA * QuestionAnswerDate [...] usual.Not at all 01/02/2025 3:00 PM Mariza Minaya MAThoughts that you would be better off or hurting yourself in some wayNot at all01/02/2025 3:00 PM Mariza Minaya MAPatient Health Questionnaire-9 Qkrmv65503/04/2024 3:00 PM Mariza Minaya MA documented as of this encounter Plan of Treatment DateTypeDepartmentCare Team (Latest Contact Info)Mswqmwiximr74/05/2025 2:00 PM ESTAncillary Procedure [facility] [address] [place] [address] 06/29/2025 3:40 PM EDTOffice Visit [facility] [address] [place] [address] Laurence Morgan, STOCK HANDLER [address] [place] [address] documented as of this encounter Visit Diagnoses Not on filedocumented in this encounter Additional Health Concerns AssessmentNoted TimePHQ-9 Depression Total Score: 3:00 PM EST documented as of this encounter Care Teams Team MemberRelationshipSpecialtyStart DateEnd Date Josse Robertson MD [address] [place] [address] PCP - GeneralFamily Medicine07/16/22 Laurence Morgan NP [address] [place] [address] Nurse PractitionerFamily Medicine05/07/24documented as of this encounter
--- OUTSIDE RECORDS SUMMARY | 2025-01-10 15:39 | XMS_ITS | Encounter Summary ---
Author Organization [facility] Address [address] [place] [address] Phone Care Team Providers Care Pig Lead Melter Helper Name Role Phone Josse Robertson MD Primary Care Provider [phone] Encounter Details DateTypeDepartmentCare Team (Latest Contact Info)Rwvxcatofcr17/20/2025Travel Social History Tobacco UseTypesPacks/DayYears UsedDateSmoking Tobacco: KpsprsNombnsqoak108 Smokeless Tobacco: NeverAlcohol UseStandard Drinks/WeekCommentsNever0 (1 standard drink = 0.6 oz pure alcohol)PHQ-2AnswerDate RecordedPatient Health Questionnaire-2 [id number] and Gender InformationValueDate RecordedSex Assigned at BirthNot on fileLegal IulElvu05/25/2022 2:18 PM ESTGender Identity Not on fileSexual OrientationNot on filedocumented as of this encounter Functional Status * BPAnswerDate of UhapzyikbaQymiks251/8611 3:59 PM Teresa De Los Santos LPN * PulseAnswerDate of SqwjokrnfnOwxbll1808/20/2025 3:44 PM Marie Martin LPN documented as of this encounter Plan of Treatment DateTypeDepartmentCare Team (Latest Contact Info)Vkiwirzjowb80/30/2026 3:20 PM EDTOffice Visit [facility] [address] [facility] [address] [place] [address] Loi Summers MD [address] [facility] [address] [place] [address] documented as of this encounter Visit Diagnoses Not on filedocumented in this encounter Additional Health Concerns AssessmentNoted TimeA fall risk assessment has been completed for the patient 03/24/2024 3:33 PM ESTdocumented as of this encounter Care Teams Team MemberRelationshipSpecialtyStart DateEnd Date Josse Robertson MD [address] [place] [id number] PCP - General02/09/19documented as of this encounter
--- OUTSIDE RECORDS SUMMARY | 2025-01-10 15:39 | XMS_ITS | Encounter Summary ---
Author Organization [facility] Address [address] [place] [address] Care Team Providers Care Air Liaison And Special Staff Name Role Phone Josse Robertson MD Primary Care Provider [phone] Laurence Morgan BRAND COORDINATOR Unavailable [phone] Encounter Details DateTypeDepartmentCare Team (Latest Contact Info)Uitxejcapwx14/24/2025bstract [facility] [place] [facility] [address] [place] [address] Laurence Morgan, BRAND COORDINATOR [address] [place] [address] Social History Tobacco UseTypesPacks/DayYears UsedDateSmoking [...] on one occasion?Never07/29/2022HQ-2 AnswerDate RecordedPatient Health Questionnaire-2 Wumxa31403/04/2024Sex and Gender InformationValueDate RecordedSex Assigned at BirthNot [...] 3:00 PM Mariza Minaya MAPatient Health Questionnaire-2 Bbphy69203/04/2024 3:00 PM Mariza Minaya MA * QuestionAnswerDate [...] 3:00 PM Mariza Minaya MAPatient Health Questionnaire-9 Ewivk22403/04/2024 3:00 PM Mariza Minaya MA documented as of this encounter Plan of Treatment DateTypeDepartmentCare Team (Latest Contact Info)Smrddmmihrw21/05/2025 2:00 PM ESTAncillary Procedure [facility] [address] [address] 06/29/2025 3:40 PM EDTOffice Visit [facility] [address] [place] [address] Laurence Morgan NP [address] [place] [address] documented as of this encounter Visit Diagnoses Not on filedocumented in this encounter Additional Health Concerns AssessmentNoted TimePQ-9 Depression Total Score: 3:00 PM EST documented as of this encounter Care Teams Team MemberRelationshipSpecialtyStart DateEnd Date Josse Robertson MD [address] [place] [address] PCP - GeneralFamily Medicine07/16/22 Laurence Morgan NP [address] [place] [address] Nurse PractitionerFamily Medicine05/07/24documented as of this encounter
== END 2025-01-10 15:36 | disposition home or self-care (01) ==
LOC: CARD 15:36
PROVIDERS: PCP Family Medicine; Visit Provider Chiropractor
DX: I25.9 Chronic ischemic heart disease, unspecified (principal); I10 Essential (primary) hypertension; R94.31 Abnormal electrocardiogram [ECG] [EKG]
CPT/HCPCS: 93005; 93306